=== PATIENT | male | born 1995 | race Two or more races ===

== ENCOUNTER 2018-05-14 12:54 | Emergency (ER) | payer OTHER ==
[~2018-05-14] VITALS: Ht 180.3 cm; Wt 75.3 kg
[2018-05-14 13:03] VITALS: BP 132/77
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
[2018-05-14] MEDS ORDERED: ACETAMINOPHEN 325 MG TABLET PO STA (13:12)
[2018-05-14] MEDS ORDERED: ACETAMINOPHEN 325 MG TABLET ONE (13:19)
--- NOTE | 2018-05-14 13:22 | NUR ---
CALLED NON-[employer] [facility] SPOKE WITH EDI COORDINATOR 260 INICIDENT REPORT #[id number] [employer] [facility] WILL BE SENT SHORTLY.
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
== END 2018-05-14 13:39 | disposition left against medical advice (07) ==
LOC: ER 12:56
DX: S61.102A Unspecified open wound of left thumb with damage to nail, initial encounter (principal); R10.84 Generalized abdominal pain; R07.81 Pleurodynia; R42 Dizziness and giddiness; M79.642 Pain in left hand; Y04.0XXA Assault by unarmed brawl or fight, initial encounter; Y93.89 Activity, other specified; Y92.89 Other specified places as the place of occurrence of the external cause; Y99.8 Other external cause status
CPT/HCPCS: 99283; A4606; Z7610